=== PATIENT | female | born 1965 ===

== ENCOUNTER 2019-06-14 20:52 | Observation (INO) | payer OTHER, SELFPAY ==
[2019-06-14 21:30] LABS: #Basophils 0.1 thou/uL (0.0-0.2); #Eosinphils 0.1 thou/uL (0.0-0.7); #Lymphocytes 1.8 thou/uL (1.20-3.40); #Monocytes 0.7 thou/uL (0.11-0.59); %Basophils 0.6 % (0.0-1.0); %Eosinophils 1.1 % (0.0-10.0); %Monocytes 6.7 % (0.0-10.0); %Neutrophils 72.6 % (42.0-75.0); Hemoglobin 10.2 g/dL (12.0-16.0); Mean Corpuscular HGB CONC 32.4 g/dL (32.0-36.0); Mean Corpuscular Hemoglobin 24.3 pg (27.0-31.0); Mean Corpuscular Volume 75.1 fL (78.0-98.0); Mean Platelet Volume 8.1 fL (7.4-10.4); Platelet Count 435 thou/uL (130-400); RBC Distribution Width 15.6 % (11.5-14.5); Red Blood Cell (RBC) Count 4.21 mill/uL (4.20-5.40); White Blood Cell (WBC) Count 9.7 thou/uL (4.8-10.8)
[2019-06-14 21:41] LABS: ALT (SGPT) 16 U/L (8-55); AST (SGOT) 14 U/L (5-34); Albumin 4.6 g/dL (3.5-5.0); Alkaline Phosphatase 67 U/L (40-110); Anion Gap 11 mmol/L (10-20); BUN (Urea Nitrogen) 12 mg/dL (9.8-20.1); Bilirubin, Total 0.4 mg/dL (0.2-1.2); Calc. Creatinine Clearance 0 mL/min (70-130); Calcium 9.6 mg/dL (7.8-10.44); Carbon Dioxide 26 mmol/L (22-29); Chloride 105 mmol/L (98-107); Estimated GFR-MDRD 63; Globulin 2.7 g/dL (2.4-3.5); Glucose 102 mg/dL (70-105); Potassium 3.8 mmol/L (3.5-5.1); Protein, Total 7.3 g/dL (6.0-8.3); Sodium 138 mmol/L (136-145)
--- NOTE | 2019-06-14 22:09 | RAD ---
EXAM: CHEST ONE VIEW HISTORY: Chest pain for 2 days. Flushed feeling. COMPARISON: None FINDINGS: Cardiac silhouette is magnified by projection. Pulmonary vasculature is within normal limits. The leah gs are clear. The osseous structures are intact. IMPRESSION: No acute cardiopulmonary process.
[2019-06-14] MEDS ORDERED: Aspirin Chewable 81 MG TAB ONE (23:07)
[2019-06-15 00:11] VITALS: BMI 47.7
[2019-06-15] MEDS ORDERED: Nitroglycerin 0.4 MG TAB (25 Tab Bottle) PO PRN (00:50)
[2019-06-15] MEDS ORDERED: Senokot S 8.6-50 MG TAB PO PRN (00:50)
[2019-06-15] MEDS ORDERED: Acetaminophen 325 MG TAB PO PRN (00:50)
[2019-06-15] MEDS ORDERED: Ondansetron ODT 4 MG TAB PO PRN (00:50)
[2019-06-15] MEDS ORDERED: Ondansetron PF 4 MG/2 ML Vial IVP PRN (00:50)
[2019-06-15] MEDS ORDERED: Calcium Carbonate 500 MG ChewTAB PO PRN (00:50)
--- NOTE | 2019-06-15 00:57 | PDOC.FPRHP ---
- History of Present Illness Chief Complaint: Chest Pain, Abd pain History of Present Illness: Patient is a 54 yo female who presents with complaint of chest pain and abdominal pain. She states that at 1930 on 06/14/19 she had sudden anxious, "impending doom" feeling that lasted about 10-15 minutes which was accompanied by feeling flushed, chills, blurry vision, and a headache all of which has now self-resolved. She also says for the past few day she has had an "unsteady feeling" when walking around but denies feelings of dizziness, room-spinning sensation, or vertigo. Additionally patient says for past 3 days she has had pain intermittently in the right upper abdomen and right chest which radiates to her right shoulder and down into her right arm to the elbow. This pain usually occurs when she is walking. Patient has not seen a doctor in years because she says she has not had a reason to. Patient does state that about 2 years ago she had some right upper abdominal pain and was told at the time she was having "gallbladder attacks" but denies any history of stones. She has been trying to control her pain with diet by avoiding fatty, greasy, or fried foods but when she does eat these things it causes her to have some moderate stomach pain and nausea. She has not tried anything OTC for her symptoms. Her last meal was a salad about 8 hours ago. She is not currently complaining of any symptoms. ED Course: Given ASA 324 mg. DDimer neg, Troponin neg. CXR with no acute process. - Allergies/Adverse Reactions Allergies Allergy/AdvReac Type Severity Reaction Status Date / Time No Known Allergies Allergy Verified 06/15/19 01:33 - Home Medications Medication Instructions Recorded Confirmed Type Fish Oil 1,000 mg PO DAILY 06/15/19 06/15/19 History Magnesium Amino Acid Chelate 600 mg PO DAILY 06/15/19 06/15/19 History [Magnesium] Multivitamin [Multi-Vitamin Daily] 1 tab PO DAILY 06/15/19 06/15/19 History - History PMHx: Obesity PSHx: C/S in 1994 FHx: Paternal grandfather with NV age 40s, Maternal grandfather with NV age 60s , Mother has sarcoidosis, Father from Mesothelioma Social: Denies tobacco or EtOH use - Review of Systems General: denies: fever/chills, weight/appetite/sleep changes, fatigue Eyes: denies: vision changes ENT: denies: nasal congestion Respiratory: reports: shortness of breath (with exertion). denies: cough, congestion Cardiovascular: reports: chest pain. denies: palpitation, edema Gastrointestinal: reports: nausea, abdominal pain. denies: vomiting, diarrhea, constipation Genitourinary: denies: dysuria Skin: denies: rashes, lesions, itching Musculoskeletal: denies: pain, tenderness, swelling Neurological: denies: numbness, weakness - Vital signs BP: 138/77 HR: 77 RR: 18 Tmax: 98.7F Pox: 97% on RA Wt: 125 kg - Physical Exam Constitutional: NAD, awake, alert and oriented, well developed HEENT: normocephalic and atraumatic, EOMI, conjunctiva clear, no scleral icterus , grossly normal vision, grossly normal hearing, normal nasal mucosa, MMM Neck: supple, FROM, no JVD Chest: no-tender to palpation, no lesions Heart: RRR, normal S1/S2, no murmurs/rubs/gallops, pulses present, no edema Lungs: CTAB, no respiratory distress, good air movement, no rales/rhonchi, no wheezing Abdomen: soft, bowel sounds present -Abdomen: TTP in epigastric and RUQ Musculoskeletal: normal structure, normal tone Neurological: no focal deficit, CN II-XII intact, normal sensation Skin: no rash/lesions, good turgor, no jaundice Heme/Lymphatic: no unusual bruising or bleeding Psychiatric: normal mood and affect, intact recent and remote memory FMR H&P: Results - Labs Result Diagrams: 06/15/19 05:02 06/15/19 05:02 Lab results: WBC 9.7 thou/uL (4.8-10.8) 06/14/19 21:16 Hgb 10.2 g/dL (12.0-16.0) L 06/14/19 21:16 Hct 31.6 % (36.0-47.0) L 06/14/19 21:16 MCV 75.1 fL (78.0-98.0) L 06/14/19 21:16 Plt Count 435 thou/uL (130-400) H 06/14/19 21:16 Neutrophils % 72.6 % (42.0-75.0) 06/14/19 21:16 Sodium 138 mmol/L (136-145) 06/14/19 21:16 Potassium 3.8 mmol/L (3.5-5.1) 06/14/19 21:16 Chloride 105 mmol/L (98-107) 06/14/19 21:16 Carbon Dioxide 26 mmol/L (22-29) 06/14/19 21:16 BUN 12 mg/dL (9.8-20.1) 06/14/19 21:16 Creatinine 0.94 mg/dL (0.6-1.1) 06/14/19 21:16 Glucose 102 mg/dL (70-105) 06/14/19 21:16 Calcium 9.6 mg/dL (7.8-10.44) 06/14/19 21:16 Total Bilirubin 0.4 mg/dL (0.2-1.2) 06/14/19 21:16 AST 14 U/L (5-34) 06/14/19 21:16 ALT 16 U/L (8-55) 06/14/19 21:16 Alkaline Phosphatase 67 U/L (40-110) 06/14/19 21:16 B-Natriuretic Peptide 21.0 pg/mL (0-100) 06/14/19 21:16 Serum Total Protein 7.3 g/dL (6.0-8.3) 06/14/19 21:16 Albumin 4.6 g/dL (3.5-5.0) 06/14/19 21:16 - Radiology Interpretation Chest x-ray Status: report reviewed by me (no acute process) FMR H&P: A/P - Problem List (1) Atypical chest pain Current Visit: Yes Status: Acute Code(s): R07.89 - OTHER CHEST PAIN - Plan Patient is a 54 yo female with atypical chest pain: #Atypical Chest Pain -CP described as intermittent, usually with exertion; recent dyspnea on exertion last 3 days -initial troponin neg, will trend -EKG with t wave inversions in non-concordant leads (III, aVF) -HEART score: 4 -plan for chemical stress test in AM -Risk stratify labs- FLP, Mg, Phos, A1c, TSH #Abdominal Pain -likely 2/2 biliary colic given reported hx -will obtain RUQ U/S Diet: NPO at midnight, ice chips & meds with sips of water okay DVT PPx: Lovenox GI PPx: none Code status: FULL Dispo: Admit to observation on telemetry unit. Plan for stress in AM. Obtain RUQ U/S. Anticipate LOS <48 hrs. FMR H&P: Upper Level - Plan Date/Time: 06/15/19 0054 Annalisa Delarosa DO, have evaluated this patient and agree with findings/plan as outlined by internal medicine veterinary technician resident. Pertinent changes/additions are listed here. Pt is a 54 yo F with PMH of biliary colic presenting for CP and SOB x2 days. She also reports intermittent RUQ pain that doesn't seem to be related. Normally walks up stairs without difficulty and has noticed RUGGIERO with 1 flight of stairs, not being able to speak in full sentences. She reports CP is located substernal and radiates to the R chest and is a "tightness"-type pain. Pain is worsened with deep breathing. Pain occurs independent of exertion, lasts 5-10min, is not associated with n/v, diaphoreses, or palpitations. Is associated with SOB and a "flush" feeling. Had this same feeling years ago and was attributed to her gallbladder. No previous cardiac workup to include a stress test. Denies edema, orthopnea, recent illness, improvement with leaning forward or lying down. VS: BP138/77, P77, R18, T98.7, O297%RA PE: Gen: morbidly obese in appearance, NAD Heart: RRR, no murmurs or extra sounds. Distal pulses 2+ Lungs: CTAB, no wheezing. No increased work of breathing Abd: soft, mild ttp along RUQ and epigastric area, BS+ Ext: no cyanosis or edema Skin: no rashes or wounds present Psych: AOx3, normal mood Pertinent Labs/Imaging: H/H: 10.2/31.6, MCV 75 Trop: <0.010 EKG: NSR rate 99, T wave inversion in lead III, V5, V6, no ST changes. CXR: no acute findings. A/P: Atypical CP -CP is atypical, more concerning is RUGGIERO. Place in observation and trend troponins. EKG with t wave inversions in non-concordant leads. -HEART score: 4 -plan for stress in AM, NPO at [place] -Risk stratify- FLP, Mg, Phos, A1c, TSH -could be 2/2 biliary colic- will get RUQ us. Microcytic Anemia -Fe studies pending DVT PPx: Lovenox GI PPx: none Addendum - Attending - Attending Attestation Date/Time: 06/15/19 1002 I personally evaluated the patient and discussed the management with Dr. Chung I agree with the History, Examination, Assessment and Plan documented above with any addition or exceptions noted below. 54 yo WF presented with palpitations and intermittent chest pain. Exam unremarkable except for RUQ pain. Trop Neg x3. Iron studies consistent with iron deficiency anemia. RUQ US shows FLD and cholelithiasis. Obs for ACS r/o. If NM stress test negative will d/c home. Outpatient f/u for cholelithiasis.
[2019-06-15 01:16] LABS: Troponin I Less than 0.010 ng/mL (< 0.028)
[2019-06-15 05:23] LABS: Hemoglobin A1c 5.3 % (4.0-6.0)
[2019-06-15 05:28] LABS: ALT (SGPT) 14 U/L (8-55); AST (SGOT) 12 U/L (5-34); Albumin 4.1 g/dL (3.5-5.0); Alkaline Phosphatase 58 U/L (40-110); Anion Gap 12 mmol/L (10-20); BUN (Urea Nitrogen) 12 mg/dL (9.8-20.1); Bilirubin, Total 0.3 mg/dL (0.2-1.2); Calc. Creatinine Clearance 158 mL/min (70-130); Calcium 8.6 mg/dL (7.8-10.44); Carbon Dioxide 24 mmol/L (22-29); Cardiac Risk 3.9 (Less than 4.5); Chloride 106 mmol/L (98-107); Cholesterol 170 mg/dl (< 200 Desired); Estimated GFR-MDRD 72; Globulin 2.5 g/dL (2.4-3.5); Glucose 107 mg/dL (70-105); HDL Cholesterol 44 mg/dL (>60 Neg Risk); LDL Cholesterol, Calculated 112 mg/dL; Magnesium 2.2 mg/dL (1.6-2.6); Potassium 4.1 mmol/L (3.5-5.1); Protein, Total 6.6 g/dL (6.0-8.3); Sodium 138 mmol/L (136-145); Triglycerides 68 mg/dL (Less than 150)
[2019-06-15 05:29] LABS: Iron 32 ug/dL (50-170); Iron Binding Capacity, Total 425 mcg/dL (265-497)
[2019-06-15 05:30] LABS: Iron 31 ug/dL (50-170); Iron Binding Capacity, Total 421 mcg/dL (265-497); Phosphorus 3.6 mg/dL (2.3-4.7)
[2019-06-15 05:31] LABS: Troponin I Less than 0.010 ng/mL (< 0.028)
[2019-06-15 05:45] LABS: Ferritin 6.09 ng/mL (10-291); Thyroid Stimulating Hormone 4.1217 uIU/mL (0.35-4.94)
[2019-06-15 05:51] LABS: Hemoglobin 9.6 g/dL (12.0-16.0); Mean Corpuscular HGB CONC 31.8 g/dL (32.0-36.0); Mean Corpuscular Hemoglobin 24.1 pg (27.0-31.0); Mean Corpuscular Volume 75.6 fL (78.0-98.0); Platelet Count 399 thou/uL (130-400); RBC Distribution Width 15.5 % (11.5-14.5); Red Blood Cell (RBC) Count 3.98 mill/uL (4.20-5.40); White Blood Cell (WBC) Count 8.6 thou/uL (4.8-10.8)
[2019-06-15 07:35] LABS: Free T4 (Free Thyroxine) 0.98 ng/dL (0.70-1.48)
[2019-06-15 08:09] LABS: Band 6 % (5-11); Eosinophils 3 % (0-10); Lymphocytes 32 % (21-51); MDiff Complete? YES; Microcytosis SLIGHT = 6-15 cells (100X) (0-5/hpf); Monocytes 4 % (0-10); Neutrophil 55 % (42-75); Platelet Morphology Comment Appears Adequate; Polychromasia SLIGHT = 2-3 cells (100X) (0-2/hpf)
[2019-06-15] MEDS ORDERED: Ferrous Sulfate 325 MG TAB PO SCH (08:30)
[2019-06-15] MEDS ORDERED: hydrOXYzine 25 MG TAB PO PRN (08:30)
--- NOTE | 2019-06-15 08:38 | ULT ---
GALLBLADDER ULTRASOUND: Date: 06/15/2019 HISTORY: Right upper quadrant pain. FINDINGS: The liver demonstrates increased echogenicity consistent with fatty infiltration, without focal mass or intrahepatic ductal dilatation. Small, mobile, shadowing gallstones are seen without gallbladder w all thickening or pericholecystic fluid. The common duct measures 4.0 mm in diameter. The right kidne y and visualized portions of the pancreas (tail obscured by overlying bowel gas) appear normal. No fr ee fluid is seen. IMPRESSION: 1. Fatty liver. 2. Cholelithiasis. POS: JOSE
[2019-06-15] MEDS: Enoxaparin Sodium 40 MG/0.4 ML SYRINGE SC SCH (14:56)
[2019-06-16] MEDS ORDERED: Ferrous Sulfate 325 MG TAB PO SCH (08:00)
[2019-06-16] MEDS: Enoxaparin Sodium 40 MG/0.4 ML SYRINGE SC SCH (08:39)
--- NOTE | 2019-06-16 08:46 | PDOC.FM ---
- Subjective Subjective: NAEO. Patient resting comfortably in bed. She states that she feels well today. Denies any chest pain or palpitations. States that she is still feeling the "sense of doom" sensation but that it has improved. She thinks it is anxiety and that she is "thinking too much." Patient did not take any of the hydroxyzine medication yesterday. She did the first part of the stress test without issue yesterday. - Objective MAR Reviewed: Yes Vital Signs & Weight: Vital Signs (12 hours) Temp Pulse Resp BP BP Pulse Ox 06/16/19 07:25 98.2 F 76 16 152/78 H 96 06/16/19 04:15 98.1 F 68 14 110/63 99 Weight Weight 126.325 kg I&O: 06/15/19 06/16/19 06/17/19 06:59 06:59 06:59 Intake Total 100 880 Output Total 400 1950 Balance -300 -1070 Result Diagrams: 06/15/19 05:02 06/15/19 05:02 Phys Exam - Physical Examination Constitutional: NAD HEENT: PERRLA, moist MMs, sclera anicteric Neck: supple, full ROM Respiratory: clear to auscultation bilateral Cardiovascular: RRR, no significant murmur, no rub Gastrointestinal: soft, non-tender, no distention, positive bowel sounds Musculoskeletal: no edema Neurological: non-focal Psychiatric: normal affect, A&O x 3 Skin: no rash, normal turgor, cap refill <2 seconds Dx/Plan (1) Iron deficiency Code(s): E61.1 - IRON DEFICIENCY Status: Acute (2) Anxiety Code(s): F41.9 - ANXIETY DISORDER, UNSPECIFIED Status: Acute (3) Hypertension Code(s): I10 - ESSENTIAL (PRIMARY) HYPERTENSION Status: Acute (4) Atypical chest pain Code(s): R07.89 - OTHER CHEST PAIN Status: Acute - Plan Plan: Patient is a 54 yo female with atypical chest pain: Atypical Chest Pain CP described as intermittent, usually with exertion; recent dyspnea on exertion last 3 days. EKG with t wave inversions in non-concordant leads (III, aVF). HEART score of 4. Chest pain likely related to anxiety. - Trop neg x 3 - FLP: total fei 170, HLD 44, TG 68; ASCVD risk: 2.2% - no indication for statin at this time, A1c nml, TSH 4.12 - T3/T4nml. - Day 2 of stress test today. Abdominal Pain likely 2/2 biliary colic given reported hx - RUQ US positive for cholelithiasis, no dilation in CBD. Advised patient to follow up outpatient for elective cholecystectomy. HTN Patient no hx of HTN, several readings while here elevated over the last 2 days. Could be white coat vs essential HTN. - Advised lifestyle modifications such as diet (low sodium) and exercise. - Can consider starting patient on amlodipine while here to follow up outpatient to monitor BP control. Anxiety Patient's chest pain associated with "sense of doom" and anxiety. - Will try hydroxyzine to see if this improves symptoms. DVT PPx: Lovenox GI PPx: none Code status: FULL Dispo: likely dc later today after stress Case discussed with Dr. Mack Addendum - Attending - Attending Attestation Date/Time: 06/16/19 8985 I personally evaluated the patient and discussed the management with Dr. Roe. I agree with the History, Examination, Assessment and Plan documented above with any addition or exceptions noted below. D/C pending stress test.
[2019-06-16 12:13] VITALS: BP 176/92; TEMP 98.4
--- NOTE | 2019-06-16 13:03 | NM ---
Nuclear medicine Cardiac myocardial perfusion SPECT Ejection fraction study Wall motion cine: DATE:06/15/2019 12:50 AM INDICATION: Chest pain TECHNIQUE: Number of days:2 Rest Study: Technetium 99m-sestamibi (Cardiolite) dose:29.6 mCi Stress study: Technetium 99m-sestamibi (Cardiolite) dose:33.0 mCi FINDINGS: Cardiac (myocardial perfusion) SPECT There are no reversible myocardial perfusion defects. There is a relatively fixed defect involving th e left ventricular apex on the rest and stress images likely related to overlying soft tissue attenuation or mild apical thinning. Ejection fraction study Left ventricular EF = 81% Wall motion cine Normal wall motion and thickening IMPRESSION: Probably normal myocardial perfusion evaluation. 1. Small fixed defect involving the left ventricular apex may reflect left ventricular apical thinnin g versus overlying soft tissue attenuation. No reversible myocardial perfusion defect demonstrated. 2. Normal wall motion and thickening. Estimated LVEF of 81%.
--- NOTE | 2019-06-17 13:23 | DIS ---
DATE OF ADMISSION: 06/14/2019 DATE OF DISCHARGE: 06/16/2019 RESIDENT: Zamzam Roe MD. ADMITTING ATTENDING: Dr. Mick Hawkins. DISCHARGE ATTENDING: Dr. Wilfred Mack. CONSULTS: None. PROCEDURES: 1. Nuclear medicine stress test on 06/15/2019 showing normal ejection fraction of 81% and normal wall motion and thickening. 2. Abdominal ultrasound normal on 06/15/2019 showing fatty liver and cholelithiasis with a common duct measuring 4 mm in diameter. DISCHARGE MEDICATIONS: 1. Ferrous sulfate 325 mg oral every morning with breakfast. 2. Atarax 25 mg oral every 4 hours as needed. 3. Magnesium 600 mg oral daily. 4. Fish oil 1000 mg oral daily. 5. Multivitamin one tab daily. DISCONTINUED MEDICATIONS: None. PRIMARY DIAGNOSES: 1. Atypical chest pain. 2. Cholelithiasis. 3. Hypertension. 4. Anxiety. HISTORY OF PRESENT ILLNESS/HOSPITAL COURSE: This is a 54-year-old female who presented to the ER with a complaint of chest and abdominal pain. She stated that she felt suddenly anxious which lasted about 10 to 15 minutes that was accompanied with feeling flushed, chills, blurry vision, headache that had self-resolved. She also described an episode where she felt unsteady when walking around, but denied any feelings of dizziness with vertigo. The patient also endorses that she has been having pain intermittently in the right upper abdomen and right chest that radiates to her right shoulder and down to her right arm to her elbow at times. She tells this usually occurs while walking. The patient has not seen a doctor in years because she has not had a reason to per the patient. The patient has been trying to control her abdominal pain with diet, by avoiding fatty and greasy fried foods, but when she does eat these, it does cause her to have some moderate stomach pain and nausea. In the ER, the patient was given aspirin. A D-dimer was negative as well as a troponin. Her chest x-ray showed no acute process. The patient's vital signs were stable on admission. The patient's EKG showed T-wave inversions in the nonconcordant leads. The patient's heart score was 4 on admission. The patient was admitted to telemetry for a cardiac workup. The patient's stress test was negative for any reversible ischemia and showed a normal ejection fraction. The patient's chest pain is likely associated with anxiety, which was discussed with the patient. She was prescribed Atarax p.r.n. for anxiety. As for the patient's abdominal pain, an ultrasound revealed cholelithiasis. She can follow up as outpatient with General Surgery for elective cholecystectomy. I discuss lifestyle habits such as diet and exercise. The patient also had several elevated blood pressures over her 2-day stay. Discussed this with the patient. She did not want to start taking any medications at this time. Discussed lifestyle modifications again to help her blood pressure and she would like to do this for now. She states she will follow up at [facility] to check her blood pressure to make sure it is at goal. The patient was found to have microcytic anemia with a hemoglobin of 9.6 and an MCV of 75.6. Further workup showed that her iron studies were low and she was started on iron during her stay. Advised the patient to continue this as outpatient. DISPOSITION: Stable. DISCHARGE INSTRUCTIONS: Location: Home. Activity: Ad paul. Diet: Regular. Follow up with [facility] physicians, Dr. Roe within one week. Job ID: [id number] [id number]
== END 2019-06-16 16:35 | disposition home or self-care (01) ==
LOC: ERS 20:52 → 2SW 22:57
PROVIDERS: ADMIT Emergency Medicine; ATTEND Emergency Medicine
DX: R07.89 Other chest pain (principal); F41.9 Anxiety disorder, unspecified; K80.20 Calculus of gallbladder without cholecystitis without obstruction; K76.0 Fatty (change of) liver, not elsewhere classified; I10 Essential (primary) hypertension; E66.9 Obesity, unspecified; Z68.42 Body mass index [BMI] 45.0-49.9, adult; Z79.899 Other long term (current) drug therapy
CPT/HCPCS: 36415; 71045; 76705; 78452; 80053; 80061; 82728; 83036; 83540; 83550; 83735; 83880; 84100; 84439; 84443; 84481; 84484; 85025; 85379; 93005; 93017; 94760; 96372; A9500; G0378; J0153; J1650